=== PATIENT | male | born 1960 | race Caucasian/White ===

== ENCOUNTER 2019-04-09 16:15 | Emergency (ER) | payer OTHER, SELFPAY ==
[2019-04-09 16:28] VITALS: BP 169/96; PULSE 71; RESP 18; TEMP 36.6; O2SAT 100
--- NOTE | 2019-04-09 16:45 | ED.SKABFB ---
HPI - Skin/Abscess/Foreign Bdy General Chief complaint: Skin/Abscess/Foreign Body Stated complaint: Dog Bite Time Seen by Provider: 04/09/19 16:46 Source: patient Mode of arrival: ambulatory Limitations: no limitations History of Present Illness HPI narrative: Madi Navarro is a 59 yo male with a PMH of high cholesterol, anxiety, who comes to express care for a dog bite that occurred last night. had cleaned up lacerations on the dorsum of left hand, 3 small lacs, puncture tran on the palmar side of same hand, 2 puncture tran on the right hand. Left hand medial side appears red and swollen with no tenderness; patient here for evaluation Related Data Home Medications Medication Instructions Recorded Confirmed buspirone 7.5 mg PO BID 04/09/19 04/09/19 cephalexin [Keflex] 500 mg PO QID 04/09/19 04/09/19 lorazepam 0.5 mg PO Q4-6H 04/09/19 04/09/19 simvastatin 80 mg PO DAILY 04/09/19 04/09/19 Allergies Allergy/AdvReac Type Severity Reaction Status Date / Time No Known Allergies Allergy Verified 04/09/19 16:37 Review of Systems Review of Systems: Narrative: CONSTITUTIONAL: Denies fever, chills, sweats. EYES: Denies visual changes, redness, discharge. ENT: Denies rhinorrhea, congestion, sore throat, otalgia. CARDIOVASCULAR: Denies chest pain, palpitations, edema. RESPIRATORY: Denies dyspnea, wheezing, cough GASTROINTESTINAL: Denies abdominal pain, nausea, vomiting, diarrhea. GENITOURINARY: Denies dysuria, hematuria, abnormal discharge SKIN: Denies rash or itching. Lacerations from dog bite-dorsum of the hand appears red and swollen MUSCULOSKELETAL: Denies acute back pain, joint pain, or myalgia. NEUROLOGIC: Denies numbness, or focal weakness. PSYCHIATRIC: Denies anxiety or depression. [facility] Family History Family History Other No active medical problems Social History Social History (Updated 04/09/19 @ 17:01 by Kasey Malnoey CNP) Smoking status: Former smoker Tobacco type: cigarettes Alcohol intake: current Gender identity (if verbalized by the patient): Male Comments At time of signature, I agree with nursing past medical, surgical, social and family history. There is no relevant family history pertinent to the presenting complaint. Pt's BP elevated, states does this with medical care- regular PCP visit and treated for high cholesterol Exam Narrative: Exam Narrative: GENERAL: This is a well-nourished, well-developed patient, in no apparent distress. HEAD: normocephalic, atraumatic. EYES:Sclera clear/white. Vision is grossly intact. EARS: External ears normal, Hearing grossly intact. NOSE: External nose normal with no obvious nasal discharge, nares without redness, no rhinorrhea. THROAT: Mucous membranes moist, posterior pharynx clear. NECK: Neck supple, non-tender without lymphadenopathy, masses or thyromegaly. CARDIOVASCULAR: Regular rate and rhythm without murmurs, gallops, or rubs. RESPIRATORY: Clear to auscultation. Breath sounds equal bilaterally. No wheezes, rales, or rhonchi. GASTROINTESTINAL: Abdomen soft, non-tender, nondistended. Bowel sounds are active. No hepato-splenomegaly, or palpable masses. No guarding. SKIN: warm, intact with no suspicious lesions or rash, good texture and turgor. small lacs on L proximal dorsum of hand, 3 puncture tran on palmar side- non tender but erythema and mild welling. 2+ radial pulse, good finger opposition, full ROM fingers NEURO: awake, alert, and oriented to person, place and time. There were no obvious focal neurologic abnormalities. Steady gait EXTREMITIES: Normal range of motion. No edema. BACK: Nontender without deformity or crepitance. No flank tenderness. Course Course Emergency Course: Tetanus given Antibiotics: augmentin Pin meds- ibuprofen 600 mg during day, ice and elevation, norco at bedtime Follow up with pcp- precautions on healing given Vital Signs Vital signs: Vital
[2019-04-09] MEDS: TETANUS,DIPHTHERIA,AC PERTUSSIS ADULT 0.5 ML (ADACEL) IM (17:02)
== END 2019-04-09 17:26 | disposition home or self-care (01) ==
PROVIDERS: Emergency Provider Nurse Practitioner; PCP Nurse Practitioner Family
DX: L03.114 Cellulitis of left upper limb (principal); Z23 Encounter for immunization; Z87.891 Personal history of nicotine dependence; E78.00 Pure hypercholesterolemia, unspecified; F41.9 Anxiety disorder, unspecified
CPT/HCPCS: 90471; 90715; 99213; G0463

== ENCOUNTER 2023-01-17 12:27 | Outpatient (CLI) | payer OTHER, SELFPAY ==
--- NOTE | ~2023-01-17 | US_ITS ---
EXAMINATION: US soft tissue groin LT DATE: 01/17/2023 12:48 INDICATION: Left inguinal pain TECHNIQUE: Multiple grayscale and Doppler ultrasound images of the left inguinal region of concern we re obtained. COMPARISON: CT abdomen and pelvis dated 07/12/2015 FINDINGS: There are few normal sized left inguinal lymph nodes at the region of concern which measure up to 7 m m in maximal short axis diameter and with prominent central fatty garry. Small fat-containing left ing uinal hernia seen at the time of the prior CT is is not identified on the provided images. No abnorma l masses or fluid collections identified. IMPRESSION: 1. Normal study with a few normal-sized left inguinal lymph nodes. Small fat-containing left inguinal hernia seen on prior CT is not identified on the provided images. Reviewed, dictated and finalized at location A. [facility]ATE PREPARATION IMPRESSION: 1. Normal study with a few normal-sized left inguinal lymph nodes. Small fat-co ntaining left inguinal hernia seen on prior CT is not identified on the provide d images.
== END 2023-01-17 12:28 ==
PROVIDERS: PCP Registered Nurse; Visit Provider Registered Nurse
DX: K40.90 Unilateral inguinal hernia, without obstruction or gangrene, not specified as recurrent (principal); R10.32 Left lower quadrant pain
CPT/HCPCS: 76882

== ENCOUNTER 2023-05-28 08:06 | Outpatient (CLI) | payer OTHER, SELFPAY ==
--- NOTE | ~2023-05-28 | US_ITS ---
EXAMINATION: US aorta [facility] scrn DATE: 05/28/2023 10:06 CDT INDICATION: Abdominal aortic aneurysm screening TECHNIQUE: Grayscale, color Doppler, and pulsed Doppler images of the aorta and common iliac arteries were obtained. COMPARISON: None. FINDINGS: The proximal aorta measures 2.9 cm greatest sagittal dimension. The mid aorta measures 2.2 cm greates t sagittal dimension. The distal aorta measures 2.1 cm greatest sagittal dimension. The right common internal iliac artery measures 12 mm. The left common iliac artery measures 12 mm. IMPRESSION: 1. Normal caliber aorta without aneurysm. Reviewed, dictated and finalized at location B.
== END 2023-05-28 08:07 | disposition home or self-care (01) ==
PROVIDERS: PCP Nurse Practitioner Family; Visit Provider Nurse Practitioner Family
DX: Z13.6 Encounter for screening for cardiovascular disorders (principal)
CPT/HCPCS: 76706

== ENCOUNTER 2023-07-11 13:33 | Emergency (ER) | payer OTHER, SELFPAY ==
[2023-07-11 13:35] VITALS: BP 148/84; PULSE 90; RESP 16; TEMP 36.5; O2SAT 100
[2023-07-11] MEDS: LIDO 1%/EPINEPHRINE 1:100,000 20 ML VIAL 5 ML INFILTRATE (14:19)
[2023-07-11] MEDS: TETANUS,DIPHTHERIA,AC PERTUSSIS ADULT (0.5 ML) BOOSTRIX IM (14:38)
--- NOTE | 2023-07-11 15:03 | ED.WOUNDLAC ---
HPI - Wound/Laceration General Chief Complaint: Wound/Laceration Stated Complaint: laceration to right wrist Time Seen by Provider: 07/11/23 13:40 Related Data Home Medications Medication Instructions Recorded Confirmed buspirone 7.5 mg tablet 7.5 mg PO BID 04/09/19 09/19/21 cephalexin 500 mg capsule (Keflex) 500 mg PO QID 04/09/19 09/19/21 lorazepam 0.5 mg tablet 0.5 mg PO Q4-6H 04/09/19 09/19/21 simvastatin 80 mg tablet 80 mg PO DAILY 04/09/19 09/19/21 Allergies Allergy/AdvReac Type Severity Reaction Status Date / Time No Known Allergies Allergy Verified 07/11/23 13:38 [facility] Surgical History Surgical History History of appendectomy History of tonsillectomy Family History Family History Other No active medical problems Social History Social History Smoking status: Former smoker Tobacco type: cigarettes Alcohol intake: current Substance use: never Substance use type: does not use Living arrangements: with family Gender identity (if verbalized by the patient): Male Course Vital Signs Vital signs: Vital Signs Temperature 97.7 F 07/11/23 13:35 Pulse Rate 90 07/11/23 13:35 Respiratory Rate 16 07/11/23 13:35 Blood Pressure 148/84 H 07/11/23 13:35 Pulse Oximetry 100 07/11/23 13:35 Temperature 97.7 F 07/11/23 13:35 Pulse Rate 90 07/11/23 13:35 Respiratory Rate 16 07/11/23 13:35 Blood Pressure 148/84 H 07/11/23 13:35 Pulse Oximetry 100 07/11/23 13:35 Procedures Laceration Laceration 1: Date: 07/11/23 Time: 14:50 Site: upper extremity Side (If applicable): right Size (cm): 5 Description: irregular Depth: simple, single layer (into subcu. Fascia above bone visualized) Local Anesthetic: lidocaine 1% and with epi Amount of anesthesia used (mL): 5 Pre-repair: irrigated extensively ====== Skin Level ====== Skin layer closed with: nylon Size (cm): 5-0 Number of sutures: 9 Technique: simple, interrupted ====== Subcutaneous Layer ====== Subcutaneous layer closed with: vicryl Size: 5-0 Number of sutures: 4 Technique: simple, interrupted ====== Muscle Layer ====== ====== Tendon Layer ====== Discharge Plan Discharge Clinical Impression: Laceration of forearm Patient Disposition: Home, Self-Care Condition: Stable Instructions: Care For Your Stitches (ED), Laceration (ED) Additional Instructions: you will need your sutures removed in approximately 14 days. Follow-up with your primary care doctor. Return to the ER if your wound is draining pus, you have red streaking up your arm, or you have additional concerns. Prescriptions: No Action simvastatin 80 mg Tablet 80 mg PO DAILY lorazepam 0.5 mg Tablet 0.5 mg PO Q4-6H cephalexin [Keflex] 500 mg Capsule 500 mg PO QID buspirone 7.5 mg Tablet 7.5 mg PO BID amoxicillin-pot clavulanate [Augmentin] 875-125 mg tablet 1 tablet PO Q12H 10 Days Qty: 20 0RF hydrocodone-acetaminophen [Selma] 5-325 mg tablet 1 tablet PO Q8H PRN (Reason: pain) Qty: 8 0RF Follow-up/Referrals: NADIRA,SHALONDA RAMACHANDRAN [Primary Care Provider] - 2 Weeks
== END 2023-07-11 15:46 | disposition home or self-care (01) ==
PROVIDERS: Emergency Provider Emergency Medicine; PCP Nurse Practitioner Family
DX: S51.811A Laceration without foreign body of right forearm, initial encounter (principal); Z23 Encounter for immunization; Z87.891 Personal history of nicotine dependence; W22.8XXA Striking against or struck by other objects, initial encounter
CPT/HCPCS: 12032; 90471; 90715; 99282; 99283

== ENCOUNTER 2024-05-14 12:28 | Emergency (ER) | payer OTHER, SELFPAY ==
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
--- OUTSIDE RECORDS SUMMARY | 2024-05-14 12:36 | XMS_ITS | Continuity of Care Document ---
Author Organization [facility] Address [address] [place] [address] Phone Care Team Providers Care Business Partner Name Role Phone Nurse, Registered Unavailable Unavailable Unavailable Unavailable Unavailable Procedures Procedure Date Immun admin-adult or WO counseling - fir st vaccine/toxoid HEPATITIS A VACCINE, ADULT DOSAGE, FOR I NTRAMUSCULAR USE SKIN TEST; TUBERCULOSIS, INTRADERMAL May OFFICE O/P EST 5 MIN OFFICE/OUTPATIENT VISIT, EST SKIN TEST; TUBERCULOSIS, INTRADERMAL Jan OFFICE O/P EST 5 MIN OFFICE/OUTPATIENT VISIT, EST OFFICE O/P EST 5 MIN OFFICE/OUTPATIENT VISIT, EST OFFICE O/P EST 5 MIN OFFICE O/P EST 5 MIN SKIN TEST; TUBERCULOSIS, INTRADERMAL Dec OFFICE O/P EST 5 MIN OFFICE O/P EST 5 MIN SKIN TEST; TUBERCULOSIS, INTRADERMAL Dec OFFICE O/P EST 5 MIN SKIN TEST; TUBERCULOSIS, INTRADERMAL Dec OFFICE O/P EST 5 MIN OFFICE OUTPT EST 10 MIN HEPATITIS A VACCINE, ADULT DOSAGE, FOR I NTRAMUSCULAR USE Advance Directives Directive Yes / No Effective Date File Name No Information Encounters Encounter Description Practice Location Reason(s) For Visit Diagnoses Date Provider Providers Copied on Encounter [facility] [address], [place], [place], [address] , [place] tel:[phone] [facility] Hep A vaccine (chief complaint) No Information 5 Nurse Registered. [address], [place], [place], [address], [place]. tel:[phone] Referring Provider: Registered Nurse, [address], [place], [address]. tel:[phone] [facility], [address], [place], [place], [address] , [place] tel: [phone] [facility] No Information 4 Savannah Santos. [address], [place], [place], [address], [place]. tel:[phone] OFFICE O/P EST 5 MIN [facility], [address], [place], [place], [address] , [place] tel: [phone] [facility] Unspecified follow-up examination 1 No Information Consulting Provider: Lilli Barrios, [address] [place] [address], [address]. tel: OFFICE/OUTPA TIENT VISIT, EST [facility], [address], [place], [place], [address] , [place] tel: [phone] [facility] TB Screening (chief complaint) Screening examination for pulmonary tuberculosis 1 No Information OFFICE O/P EST 5 MIN [facility], [address], [place], [place], [address] , [place] tel: [phone] [facility] PPD reading (chief complaint) Unspecified follow-up examination 0 No Information Consulting Provider: Lilli Barrios, [address] [place], [address]. tel: OFFICE/OUTPA TIENT VISIT, EST [facility], [address], [place], [place], [address] , [place] tel: [phone] [facility] TB Screening (chief complaint) No Information 0 No Information OFFICE O/P EST 5 MIN [facility], [address], [place], [place], [address] , [place] tel: [phone] [facility] PPD reading (chief complaint) Unspecified follow-up examination 4-200 9 No Information OFFICE/OUTPA TIENT VISIT, EST [facility], [address], [place], [place], [address] , [place] tel: [phone] [facility] TB Screening (chief complaint) No Information 2-200 9 No Information [facility], [address], [place], [place], [address] , [place] tel: [phone] Historic Immunization Location No Information 1-200 9 No Information OFFICE O/P EST 5 MIN [facility], [address], [place], [place], [address] , [place] tel: [phone] [facility] FOLLOW-UP EXAM NOS 5-200 8 No Information OFFICE O/P EST 5 MIN [facility], [address], [place], [place], [address] , [place] tel: [phone] [facility] SCREENING-PUL MONARY TB 3-200 8 No Information OFFICE O/P EST 5 MIN [facility], [address], [place], [place], [address] , [place] tel: [phone] [facility] FOLLOW-UP EXAM NOS 5-200 7 No Information OFFICE O/P EST 5 MIN [facility], [address], [place], [place], [address] , [place] tel: [phone] [facility] Dec- 3-200 7 No Information OFFICE O/P EST 5 MIN [facility], [address], [place], [place], [address] , [place] tel: [phone] [facility] FOLLOW-UP EXAM NOS 8-200 6 No Information OFFICE O/P EST 5 MIN [facility], [address], [place], [place], [address] , [place] tel: [phone] [facility] SCREENING-PUL MONARY TB Oct-1 6-200 6 No Information OFFICE OUTPT EST 10 MIN Tushar gallo, [address], [place], [place], [address] , [place] tel:[phone] [facility] NEED PRPHYL VC VRL HEPAT 200 6 No Information Family History Family Member Type Diagnosis Age At Onset No Information Immunizations Vaccine Date Status Comments Hep A (adult) administered Note: Hep A va ccine given. Tolerated well. ; Source: New Immunization Record HEPATITIS A VACCINE, ADULT DOSAGE, FOR INTRAMUSCULAR USE administered Source: Ne w Immunization Record INFLUENZA VIRUS VACCINE SPLI T VIRUS 6-35 [place] IM administered Source: New Immuniza tion Record Payers Payer name Insurance type Covered democrat ID Authoriza tion(s) No Information Social History Type Description Quantity Date Captured Comments Alcohol Use Details Unknown Caffeine Use Details Unknown Tobacco Use Status No Information Smoking Status No Information Sex Male Chief Complaint And Reason For Visit From encounter dated '04/27/2014 00:00'. Hep A vaccine (chief complaint). Description: Presented at [facility] for Hep A vaccine. VIS form given. Reviewed normal side effects of the vaccine. Patient tolerated well. Reason For Referral Reason For Referral No Information Plan Of Treatment Date Type Action Status Goal Influenza Vaccine. Due on No due History Of Present Illness Encounter Date Complaint History Of Prese nt Illness Hep A vaccine Presented at [facility] for Hep A vaccine. VIS form given. Reviewed normal side effects of the vaccine. Patient tolerated well. Functional Status Date Functional Assessmen t No Information Instructions Date Instruction Additional Infor mation No Information Assessments Type Assessment Date No Information Patient Care Teams Name Effective Dates (start - stop) Status Members No Information
--- OUTSIDE RECORDS SUMMARY | 2024-05-14 12:36 | XMS_ITS | Encounter Summary ---
Author Organization [facility] Address [address] [place] [address] Care Team Providers Care Channel Process Plant Operator Name Role Phone Rachelle Tan Primary Care Provider Encounter Details Date Type Department Care Team (Late st Contact Info) Description 03/18/2021 MyChart Message Enc [facility] Family & Internal [address] [phone] Rachelle Tan FNP [facility] [place], [place] [phone] tomorrows appointment Social History Tobacco Use Types Packs/Day Years Used Date Smoking Tobacco: Former Cigarettes 1 10 1 03/15/1999 - 01/13/2010 Smokeless Tobacco: Never Alcohol Use Standard Drinks/Week Comments No 0 (1 standard drink = 0.6 oz pur e alcohol) AUDIT-C Answer Date Recorded Frequency of Alcohol Consumption Never 01/29/2018 Average Number of Drinks Not on file 018 Frequency of Binge Drinking Not on file 01/02 PHQ-2 Answer Date Recorded PHQ-2 Score 0 03/08/2019 Sex and Gender Information Value Date Recorded Sex Assigned at Not on file Legal Sex Male 7:58 PM CDT Gender Identity Not on file Sexual Orientation Not on file documented as of this encounter Plan of Treatment Upcoming Encounters Date Type Department Care Team (Late st Contact Info) Description 06/08/2024 1:20 PM CDT Office Visit [facility] Family & Internal [address] [phone] Rachelle Tan FNP [facility] [place] [address] documented as of this encounter Visit Diagnoses Not on filedocumented in this encounter Additional Health Concerns Assessment Noted Time PHQ-9 Depression Total Score: 1 03/08/19 20 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
--- OUTSIDE RECORDS SUMMARY | 2024-05-14 12:36 | XMS_ITS | Encounter Summary ---
Author Organization [facility] Address [address] [place] [address] Care Team Providers Care Phlebotomy Support Tech Name Role Phone Rachelle Tan Primary Care Provider [phone] Encounter Details Date Type Department Care Team (Late st Contact Info) Description 03/27/2021 xAdhart Message Enc [facility] Family & Internal [address] [phone] [facility] Reschedule Social History Tobacco Use Types Packs/Day Years [...] Description 06/08/2024 1:20 PM CDT Office Visit [facility] Family & Internal Medicine [address] [phone] Rachelle Tan FNP [address] [place] [id number] documented as of this encounter Visit Diagnoses Not on filedocumented in this encounter Additional Health Concerns Assessment Noted Time PHQ-9 Depression Total Score: 1 03/08/19 20 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
--- OUTSIDE RECORDS SUMMARY | 2024-05-14 12:36 | XMS_ITS | Continuity of Care Document ---
Author Organization [facility] Address [address] [place] [address] Phone Care Team Providers Care Manager Internet Name Role Phone Fidel CINTRON Meng Unavailable Unavailable Allergies, Adverse Reactions, Alerts Substance Reaction Status Criticality No Known Drug Allergies Other Active No I nformation Medications Medication Instructions Dosage Effective Dates (start - stop) Status Comments simvastatin 80 mg tablet take 1 tablet by mouth daily - Active Flexeril 10 mg Tab take 1 tablet (10MG) by oral route every 6 hours prn 10 MG - Active Vicodin 5 mg-500 mg Tab take 1 tablet by oral route every 6 hours as needed for pain - Active naproxen sodium 550 mg Tab take 1 tablet (550MG) by oral route every 12 hours as needed 550 MG - Active SIMVASTATIN 80 MG TABLET take 1 by Oral route once daily - No Longer Active SIMVASTATIN 80 MG TABLET 1 QHS - No Longer Active Advance Directives Directive Yes / No Effective Date File Name No Information Encounters Encounter Description Practice Location Reason(s) For Visit Diagnoses Date Provider Providers Copied on Encounter [employer], [address], [place], [place], [address] , [place] tel: [phone] [facility] No Information 3 Fidel Wilkerson. [address] [place], [place], [address], [place]. [phone] [employer], [address], [place], [place], [address] , [place] tel: [phone] [facility] No Information 3 No Information [employer], [address], [place], [place], [address] , [place] tel: [phone] [facility] No Information 1 No Information [facility], [address], [place], [place], [address] , [place] tel:[phone] [facility] Other unspecified back disorders 1 Jeremiah Orantes. [address], [address], [place], [place], [address], [place]. tel:[phone] [facility], [address], [place], [place], [address] , [place] tel: [phone] [facility] SciaticaScreening for malignant neoplasms of the prostateMICROSCOPI C HEMATURIA 1 Jeremiah Orantes. [address], [address], [place], [place], [address], [place]. tel:[phone] [facility], [address], [place], [place], [address] , [place] tel:[phone] [facility] HYPERLIPIDEMIA NEC/NOSURIN TRACT INFECTION NOSCONSTIPATION NOSLUMBAGO 1 No Information [facility], [address], [place], [place], [address] , [place] tel:[phone] [facility] LONG-TERM USE MEDS NEC 9 No Information [facility], [address], [place], [place], [address] , [place] tel: [phone] [facility] DERMATOPHYTOSIS OF BODY 9 Jeremiah Sandersona. [address], [address], [place], [place], [address], [place]. tel:[phone] [facility], [address], [place], [place], [address] , [place] tel:[phone] [facility] MALAISE AND FATIGUE NECDYSURIAHEMATURI A NOS 9 No Information [facility], [address], [place], [place], [address] , [place] tel: [phone] [facility] SCRN MALIG NEOP-PROSTATE 9 Conversion Doctor. [address] [place], [address], . [facility], [address], [place], [place], [address] , tel: [phone] [facility] OTHER ATOPIC DERMATITIS Sathish-0 7-200 5 No Information [facility], [address], [place], [place], [address] , tel: [phone] [facility] MIXED HYPERLIPIDEMIA May-2 2-200 5 Conversion Doctor. [address] [place], [address], . [facility], [address], [place], [place], [address] , tel: [phone] [facility] ACUTE PROSTATITISSCREEN MAL NEOP-RECTUM May-2 2-200 5 No Information [facility], [address], [place], [place], [address] , tel: [phone] [facility] ACUTE URI NOS May-2 5-200 4 Conversion Doctor. [address] [place], [address], . [facility], [address], [place], [place], [address] , tel: [phone] [facility] CHR AIRWAY OBSTRUCT NEC May-2 5-200 4 No Information Family History Family Member Type Diagnosis Age At Onset uncle Problem (finding) cancer of colon Father Problem (finding) Father Problem (finding) malignant neop lasm of liver (Cause Of ) Brother Problem (finding) prostate cancer 64 Payers Payer name Insurance type Covered green party ID Authoriza tijojo(s) [facility] CI [id number] Social History Type Description Quantity Date Captured Comments Sex Male Smoking Status No Information Chief Complaint And Reason For Visit No Information Reason For Referral Reason For Referral No Information History Of Present Illness Encounter Date Complaint History Of Prese nt Illness No Information Functional Status Date Functional Assessmen t No Information Medications Administered Medication Instructions Dosage Effective Dates (start - stop) Status Comments SIMVASTATIN 80 MG TABLET take 1 by Oral route once daily - No Longer Active Instructions Date Instruction Additional Infor mation No Information Assessments Type Assessment Date No Information Patient Care Teams Name Effective Dates (start - stop) Status Members No Information
--- OUTSIDE RECORDS SUMMARY | 2024-05-14 12:36 | XMS_ITS | Encounter Summary ---
Author Organization [facility] Address [address] [place] [address] Care Team Providers Care Briquette Machine Operator Name Role Phone Rachelle Tan Primary Care Provider [phone] Encounter Details Date Type Department Care Team (Late st Contact Info) Description 09/12/2022 [facility] Message Enc [facility] Brinda, [facility] Provider Action Needed Social History Tobacco Use Types Packs/Day Years Used Date Smoking Tobacco: Former Cigarettes 1 10 1 03/15/1999 - 01/13/2010 Passive Smoke Exposure: Past Smokeless Tobacco: Never Alcohol Use Standard Drinks/Week Comments No 0 (1 standard drink = 0.6 oz pur e alcohol) AUDIT-C Answer Date Recorded Frequency of Alcohol Consumption Never 01/29/2018 Average Number of Drinks Not on file 018 Frequency of Binge Drinking Not on file 01/02 PHQ-2 Answer Date Recorded Patient Health Questionnaire-2 Score 0 05/08/2022 Sex and Gender Information Value Date Recorded Sex Assigned at Not on file Legal Sex Male 7:58 PM CDT Gender Identity Not on file Sexual Orientation Not on file documented as of this encounter Plan of Treatment Upcoming Encounters Date Type Department Care Team (Late st Contact Info) Description 06/08/2024 1:20 PM CDT Office Visit [facility] Family & Internal Medicine - [address] [phone] Rachelle Tan FNP [address] [place] [address] documented as of this encounter Visit Diagnoses Not on filedocumented in this encounter Additional Health Concerns Assessment Noted Time PHQ-9 Depression Total Score: 0 04/16/19 22 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
--- OUTSIDE RECORDS SUMMARY | 2024-05-14 12:36 | XMS_ITS | Encounter Summary ---
Author Organization [facility] Address [facility] [place] [address] Care Team Providers Care Parking Garage Manager Name Role Phone Rachelle Tan Primary Care Provider [phone] Encounter Details Date Type Department Care Team (Late st Contact Info) Description 09/23/2022 CSS99hart Message Enc [facility] Medical Group Family & Internal Medicine [address] [place] [address] Rachelle Tan FNP [facility] [place], [place] [phone] I developed a corn/callus on my hand. Social History Tobacco Use Types Packs/Day Years [...] on file documented as of this encounter Progress Notes * DOMENICO Mauricio - 09/23/2022 2:32 PM CDT He can try using a pumice stone to exfoliate this area. If this does not improve over time, we can send him to derm to see if they can remove this. 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
--- OUTSIDE RECORDS SUMMARY | 2024-05-14 12:38 | XMS_ITS | Clinical Summary ---
Author Organization [facility] Address [address] [place] [address] Care Team Providers Care Supervisor Photocomposition Name Role Phone Rachelle Tan DOMENICO Primary Care Provider [phone] Allergies No known active allergies Medications vitamin D3, cholecalciferol , 5000 UNITS capsule Take 1 capsule (5,000 Units total) by mouth daily. 0 8 Active ALPHAGAN P 0.1 % Solution INSTILL 1 DROP IN BOTH EYES TWICE DAILY DIRECTED 1 Active ferrous sulfate EC 324 (65 Fe) MG tablet Take 1 tablet (324 mg total) by mouth daily with breakfast. Active DICYCLOMINE 10 MG capsuleIndicati ons:Digestive disorder TAKE ONE CAPSULE BY MOUTH THREE TIMES DAILY NEEDED 240 capsule 1 2 Active prednisoLONE acetate 1 % ophthalmic suspension SHAKE LIQUID AND INSTILL 1 DROP IN BOTH EYES TWICE DAILY 2 Active vitamin B-12 (CYANOCOBALAMIN ) (CYANOCOBALAMIN ) 1000 mcg tablet Take 1 tablet (1,000 mcg total) by mouth daily. Active busPIRone (BUSPAR) 10 MG tabletIndicatio ns:Anxiety Take 1/2 tab ( 5mg) in the am and afternoon and 10 mg at night 90 tablet 3 3 Active methocarbamol (ROBAXIN) 750 MG TabIndications: Muscle spasm Take 1-2 tablets by mouth TID PRN 90 tablet 3 Active Cetirizine HCl (ALLERGY RELIEF, CETIRIZINE, OR) Acti ve calcium carbonate (CALCIUM 600) 600 MG tablet Take 1 tablet (600 mg total) by mouth daily. Active LORazepam (ATIVAN) 0.5 MG tabletIndicatio ns:Anxiety TAKE 1 TO 2 TABLETS BY MOUTH EVERY 8 HOURS NEEDED 60 tablet 2 Active Active Problems Problem Noted Date Diagnosed Date Left upper quadrant abdominal pain 02/12/2023 Unintentional weight loss 02/12/2023 Left inguinal hernia 02/12/2023 Chronic bilateral low back pain with right-sided sciatica 08/14/2021 DDD (degenerative disc disease), lumbosacral Iron deficiency anemia secon uriel to inadequate dietary iron intake 04/18/2021 BMI 27.0-27.9,adult 04/01/2019 Vitamin B12 deficiency 03/12/2019 Constipation 12/28/2017 Low vitamin D level 01/24/2017 Anxiety 01/10/2017 Hidrosis 01/10/2017 Insomnia 01/10/2017 Panic attacks 01/10/2017 Fatigue 07/03/2015 Hyperglycemia 12/01/2013 Hyperlipidemia 11/18/2011 Resolved Problems Problem Noted Date Diagnosed Date Resolved Date Sore throat 09/09/2019 04/18/2021 Cellulitis of left hand 04/13/201904/03 Dog bite, initial encounter 04/13/2019 04/18/2021 Cough 03/12/2019 04/18/2021 Digestive disorder 05/22/2017 2 Dizziness 01/10/2017 04/18/2021 Tingling in extremities 01/10/201704/03 Immunizations Name Administration Dates Next Due Fluzone 6 Months+ Quad (0.5 mL Prefilled Syringe) 02/11/2023,12/27/2019,12/24/2018 Influenza (Generic) 01/04/2014 Influenza Adult (Generic) 12/23/2017 Pneumococcal (Prevnar 20) 05/14/2023 Shingrix 06/03/2018,02/28/2018 Tdap (Boostrix) 01/29/2018 Tdap (Generic) 04/09/2019 Family History Relation Status Comments Mother Alive Social History Tobacco Use Types Packs/Day Years Used Date Smoking Tobacco: Former Cigarettes 1 10 1 03/15/1999 - 01/13/2010 Passive Smoke Exposure: Past Smokeless Tobacco: Never Tobacco Cessation:Counseling Given: Not Answered Alcohol Use Standard Drinks/Week Comments No 0 (1 standard drink = 0.6 oz pur e alcohol) AUDIT-C Answer Date Recorded Frequency of Alcohol Consumption Never 01/29/2018 Average Number of Drinks Not on file 018 Frequency of Binge Drinking Not on file 01/02 PHQ-2 Answer Date Recorded Patient Health Questionnaire-2 Score 0 05/14/2023 Sex and Gender Information Value Date Recorded Sex Assigned at Not on file Legal Sex Male 7:58 PM CDT Gender Identity Not on file Sexual Orientation Not on file Last Filed Vital Signs Vital Sign Reading Time Taken Comments Blood Pressure 136/80 07/24/2023 9:51 AM CDT Pulse 70 07/24/2023 9:05 AM CDT Temperature 37 C (98.6 F) 07/24/2023 9:05 AM CDT Respiratory Rate 16 07/24/2023 9:05 AM CDT Oxygen Saturation 100% 07/24/2023 9:05 AM CDT Inhaled Oxygen Concentration - - Weight 70.9 kg (156 lb 6.4 oz) 07/24/2023 9:05 A M CDT Height 167.6 cm (5' 6 ) 07/24/2023 9:05 AM CDT Body Mass Index 25.24 07/24/2023 9:05 AM CDT Plan of Treatment Upcoming Encounters Date Type Department Care Team (Late st Contact Info) Description 06/08/2024 1:20 PM CDT Office Visit [facility] Medical Group Family & Internal Medicine - [address] [phone] Rachelle Tan FNP [address] [place] [address] Health Maintenance Due Date Last Done Comments COVID-19 Vaccine ( season) 2023 06/20/2020, 05/30/2020 Influenza Adult (#1) 2023 02/11/2023, 12/27/2019, 12/24/2018, Additional history exists PHQ-2 (Physician [facility]) 03/03/2024 05/14/2023 Colorectal Cancer Screening Colonoscopy (10 Years) 10/17/2025 Postponed from 1958 (Per Provider Recommendation) DTaP, Tdap and Td Vaccines (3 - Td or Tdap) 04/09/2029 04/09/2019, 01/29/2018 RSV Immunization or 60+ Years (1 - 1-dose 75+ series) 2033 Zoster Vaccines Completed 06/03/2018, 02/28/2018 Hepatitis C Completed 04/17/2021 Pneumococcal Vaccine: 65+ Years Completed 05/14/2023 AAA SCREENING Completed 05/28/2023 Meningococcal B Vaccine Aged Out No l onger eligible based on patient's age to complete this topic Meningococcal Vaccine Aged Out No mireille colten eligible based on patient's age to complete this topic RSV Immunizations Under 20 Months Aged Out No longer eligible based on patient's age to complete this topic Procedures Procedure Name Priority Date/Time Associated Diagnosis Comments US AORTA (AAA) SCREEN - GENERIC 05/28/2023 HEPATITIS C ANTIBODY Routine 04/17/2021 8:49 AM TISSUE INSERTER Need for hepatitis C screening test from Last 3 Months or Most Recently Relevant to Health Maintenance Results * US AORTA (AAA) SCREEN - GENERIC (05/28/2023) Anatomical Region Laterality Modality Other 05/28/2023 [facility] Scanned SCANNING Final Resu lt * HEPATITIS C ANTIBODY (04/17/2021 8:49 AM TISSUE INSERTER) HEPATITIS C AB NON-REACTI VE NON-REACT CINTHIA 04/17/2021 9:52 PM TISSUE INSERTER [facility] Comment: ANTIBODIES TO HCV NOT DETECTED. DOES NOT EXCLUDE THE POSSIBILITY OF EXPOSURE TO HCV. 04/17/2021 8:49 AM TISSUE INSERTER Rachelle [facility] Final Result [facility] [address] [place] [address], [id number] from Last 3 Months or Most Recently Relevant to Health Maintenance Insurance [facility] MEDICARE PART A Care Teams Supervisor Photocomposition Relationship Specialty Start Date End Date Rachelle Tan FNP [address] [place] [address] PCP - General Nurse Practitioner Family 01/29/18
--- OUTSIDE RECORDS SUMMARY | 2024-05-14 12:38 | XMS_ITS | Encounter Summary ---
Author Organization [facility] Address [address] [place] [address] Care Team Providers Care Go Go Dancer Name Role Phone Rachelle Tan Primary Care Provider [phone] Encounter Details Date Type Department Care Team (Latest Contact Info) Description 02/17/2023 [facility] Message Enc [facility] Family & Internal [address] [phone] Rachelle Tan FNP [address] [place] [phone] We picked up Madi s prescription Social History Tobacco Use Types Packs/Day Years [...] Description 06/08/2024 1:20 PM CDT Office Visit [facility] Family & Internal [address] [phone] Rachelle Tan FNP [address] [place] [address] documented as of this encounter Visit Diagnoses Not on filedocumented in this encounter Additional Health Concerns Assessment Noted Time PHQ-9 Depression Total Score: 0 04/16/19 22 3:44 PM 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
[2024-05-14 12:47] VITALS: BP 177/90; PULSE 86; RESP 16; TEMP 36.9; O2SAT 100
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
--- OUTSIDE RECORDS SUMMARY | 2024-05-14 15:13 | XMS_ITS | Encounter Summary ---
Author Organization [facility] Address [address] [place] [address] Care Team Providers Care Manager Banquet Name Role Phone Rachelle Tan Primary Care Provider [phone] Encounter Details Date Type Department Care Team (Late st Contact Info) Description 09/12/2022 [employer] Message Enc [facility] Brinda, [facility] Provider Action Needed Social History Tobacco [...] Description 06/08/2024 1:20 PM CDT Office Visit [facility] Group Family & Internal Medicine - [address] [phone] Rachelle Tan FNP [address] [place] [address] documented as of this encounter Visit Diagnoses Not on filedocumented in this encounter Additional Health Concerns Assessment Noted Time PHQ-9 Depression Total Score: 0 04/16/19 22 3:44 PM 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
--- OUTSIDE RECORDS SUMMARY | 2024-05-14 15:13 | XMS_ITS | Encounter Summary ---
Author Organization [facility] Address [address] [place] [address] Care Team Providers Care Airworthiness Inspector Name Role Phone Rachelle Tan Primary Care Provider [phone] Encounter Details Date Type Department Care Team (Late st Contact Info) Description 03/27/2021 Atterocorhart Message Enc [facility] Family & Internal [address] [address] [facility]ment Reschedule Social History Tobacco [...] Description 06/08/2024 1:20 PM CDT Office Visit [facility] Family & Internal Medicine [address] [phone] Rachelle Tan FNP [address] [place] [address] [phone] documented as of this encounter Visit Diagnoses Not on filedocumented in this encounter Additional Health Concerns Assessment Noted Time PHQ-9 Depression Total Score: 1 03/08/19 20 4:47 PM BRUSH 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
--- OUTSIDE RECORDS SUMMARY | 2024-05-14 15:13 | XMS_ITS | Encounter Summary ---
Author Organization [facility] Address [facility] [place] [address] Care Team Providers Care Title Inspector Name Role Phone Rachelle Tan Primary Care Provider [phone] Encounter Details Date Type Department Care Team (Late st Contact Info) Description 09/23/2022 Corner[employer] Message Enc [facility] Medical Group Family & Internal Medicine [phone] [place] [address] Rachelle Tan FNP [facility] [place], [place] [phone] I developed a corn/callus on my hand. 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
--- OUTSIDE RECORDS SUMMARY | 2024-05-14 15:13 | XMS_ITS | Encounter Summary ---
Author Organization [facility] Address [address] [place] [address] Care Team Providers Care Hydrology Technician Name Role Phone Rachelle Tan Primary Care Provider [phone] Encounter Details Date Type Department Care Team (Late st Contact Info) Description 03/18/2021 MyChart Message Enc [facility] Family & Internal [address] [phone] Rachelle Tan FNP [facility] [place], [place] [phone] tomorrows appointment Social History Tobacco Use Types [...] Description 06/08/2024 1:20 PM CDT Office Visit [facility] Family & Internal [address] [phone] Rachelle Tan FNP 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
--- OUTSIDE RECORDS SUMMARY | 2024-05-14 15:13 | XMS_ITS | Continuity of Care Document ---
Author Organization [facility] Address [address] [place] [address] Phone Care Team Providers Care Mud Analysis Well Logging Captain Name Role Phone Nurse, Registered Unavailable Unavailable [...] Diagnoses Date Provider Providers Copied on Encounter [employer], [address], [place], [place], [address] , [place] tel:[phone] [facility] Hep A vaccine (chief complaint) No Information 5 Nurse Registered. [address], [place], [place], [address], [place]. tel:[phone] Referring Provider: Registered Nurse, [address], [place], [address]. tel:[phone] [facility], [address], [place], [place], [address] , [place] tel: [phone] [facility] No Information 4 Savannah Santos. [address], [place], [place], [address], [place]. tel:[phone] OFFICE O/P EST 5 MIN [facility], [address], [place], [place], [address] , [place] tel: [phone] [facility] Unspecified follow-up examination 1 No Information Consulting Provider: Lilli Barrios, [address] [place] [address], [address]. tel: OFFICE/OUTPA TIENT VISIT, EST [facility], [address], [place], [place], [address] , [place] tel: [phone] [facility] TB Screening (chief complaint) Screening examination for pulmonary tuberculosis 1 No Information OFFICE O/P EST 5 MIN [facility], [address], [place], [place], [address] , [place] tel: [phone] [facility] PPD reading (chief complaint) Unspecified follow-up examination 0 No Information Consulting Provider: Lilli Barrios, [address] [place], [address]. tel: OFFICE/OUTPA TIENT VISIT, EST [facility], [address], [place], [place], [address] , [place] tel: [phone] [facility] TB Screening (chief complaint) No Information 0 No Information OFFICE O/P EST 5 MIN [facility], [address], [place], [place], [address] , [place] tel: [phone] [facility] PPD reading (chief complaint) Unspecified follow-up examination 4-200 9 No Information OFFICE/OUTPA TIENT VISIT, EST [facility], [address], [place], [place], [address] , [place] tel: [phone] [facility] TB Screening (chief complaint) No Information 2-200 9 No Information [facility], [address], [place], [place], [address] , [place] tel: [phone] [facility] Immunization Location No Information 1-200 9 No Information OFFICE O/P EST 5 MIN [facility], [address], [place], [place], [address] , [place] tel: [phone] [facility] FOLLOW-UP EXAM NOS 5-200 8 No Information OFFICE O/P EST 5 MIN [facility], [address], [place], [place], [address] , [place] tel: [phone] [facility] [place] [facility] SCREENING-PUL MONARY TB 3-200 8 No Information OFFICE O/P EST 5 MIN [facility], [address], [place], [place], [address] , [place] tel: [phone] [facility] FOLLOW-UP EXAM NOS 5-200 7 No Information OFFICE O/P EST 5 MIN [facility], [address], [place], [place], [address] , [place] tel: [phone] [facility] SCREENING-PUL MONARY TB Dec- 3-200 7 No Information OFFICE O/P EST 5 MIN [facility], [address], [place], [place], [address] , [place] tel: [phone] [facility] FOLLOW-UP EXAM NOS 8-200 6 No Information OFFICE O/P EST 5 MIN [facility], [address], [place], [place], [address] , [place] tel: [phone] [facility] SCREENING-PUL MONARY TB Oct-1 6-200 6 No Information OFFICE OUTPT EST 10 MIN Tush[facility] gallo, [address], [place], [place], [address] , [place] tel:[phone] [facility] NEED PRPHYL VC VRL [...] Record Payers Payer name Insurance type Covered constitution party ID Authoriza tion(s) No Information Social History Type Description Quantity Date Captured Comments Alcohol Use Details Unknown Caffeine Use Details Unknown Tobacco Use Status No Information Smoking Status No Information Sex Male Chief Complaint And Reason For Visit From encounter dated '04/27/2014 00:00'. Hep A vaccine (chief complaint). Description: Presented at [facility] for Hep A vaccine. VIS form given. Reviewed normal side effects of the vaccine. Patient tolerated well. Reason For Referral Reason For Referral No Information Plan Of Treatment Date Type Action Status Goal Influenza Vaccine. Due on No due History Of Present Illness Encounter Date Complaint History Of Prese nt Illness Hep A vaccine Presented at [facility] for Hep A vaccine. VIS form given. Reviewed normal side effects of the vaccine. Patient tolerated well. Functional Status Date Functional Assessmen t No Information Instructions Date Instruction Additional Infor mation No Information Assessments Type Assessment Date No Information Patient Care Teams Name Effective Dates (start - stop) Status Members No Information
--- OUTSIDE RECORDS SUMMARY | 2024-05-14 15:13 | XMS_ITS | Encounter Summary ---
Author Organization [facility] Address [address] [place] [address] Care Team Providers Care Ice Scraper Name Role Phone Rachelle Tan Primary Care Provider [phone] Encounter Details Date Type Department Care Team (Latest Contact Info) Description 02/17/2023 [employer] Message Enc [facility] Family & Internal [address] [address] Rachelle Tan FNP [address] [place] [address] [phone] We picked up Madi s prescription Social [...] [facility] Internal [address] [address] Rachelle Tan FNP [address] [place] [address] documented as of this encounter Visit Diagnoses Not on filedocumented in this encounter Additional Health Concerns Assessment Noted Time PHQ-9 Depression Total Score: 0 04/16/19 22 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
--- OUTSIDE RECORDS SUMMARY | 2024-05-14 15:14 | XMS_ITS | Clinical Summary ---
Author Organization [facility] Address [address] [place] [address] Care Team Providers Care Forester Silviculture Name Role Phone Rachelle Tan DOMENICO Primary Care Provider [phone] Allergies No known active allergies Medications vitamin [...] Description 06/08/2024 1:20 PM CDT Office Visit [facility] Family & Internal Medicine - [address] [address] Rachelle Tan FNP [address] [place] [address] Health Maintenance Due Date Last Done Comments COVID-19 Vaccine ( season) 2023 06/20/2020, 05/30/2020 Influenza Adult (#1) 2023 02/11/2023, 12/27/2019, 12/24/2018, Additional history exists PHQ-2 (Physician Hay) 03/03/2024 05/14/2023 Colorectal Cancer Screening Colonoscopy (10 [...] HEPATITIS C ANTIBODY Routine 04/17/2021 8:49 AM DENTAL SURGERY DOCTOR Need for hepatitis C screening test from Last 3 Months or Most Recently Relevant to Health Maintenance Results * US AORTA (AAA) SCREEN - GENERIC (05/28/2023) Anatomical Region Laterality Modality Other 05/28/2023 [facility] Scanned SCANNING Final Resu lt * HEPATITIS C ANTIBODY (04/17/2021 8:49 AM DENTAL SURGERY DOCTOR) HEPATITIS C AB NON-REACTI VE NON-REACT CINTHIA 04/17/2021 9:52 PM DENTAL SURGERY DOCTOR [facility] Comment: ANTIBODIES TO HCV NOT DETECTED. DOES NOT EXCLUDE THE POSSIBILITY OF EXPOSURE TO HCV. 04/17/2021 8:49 AM DENTAL SURGERY DOCTOR Rachelle [facility] Final Result [facility] [address] [place] [address], [id number] from Last 3 Months or Most Recently Relevant to Health Maintenance Insurance [facility] MEDICARE PART A Care Teams Forester Silviculture Relationship Specialty Start Date End Date Rachelle Tan FNP [address] [place] [address] PCP - General Nurse Practitioner Family 01/29/18
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
[2024-05-14 16:23] VITALS: BP 165/94; PULSE 71; RESP 16; O2SAT 100
== END 2024-05-14 16:40 | disposition home or self-care (01) ==
PROVIDERS: Emergency Provider Physician Assistant; PCP Nurse Practitioner Family
DX: S16.1XXA Strain of muscle, fascia and tendon at neck level, initial encounter (principal); V89.2XXA Person injured in unspecified motor-vehicle accident, traffic, initial encounter; F41.9 Anxiety disorder, unspecified; E78.00 Pure hypercholesterolemia, unspecified; Z87.891 Personal history of nicotine dependence
CPT/HCPCS: 70450; 72125; 99284; L0140